=== PATIENT | male | born 1980 | race Caucasian/White ===

== ENCOUNTER → 2024-02-01 | Day surgery (SDC) | payer OTHER ==
[~2024-02-01] MED LIST: ATORVASTATIN CA40 MG PO; BUSPIRONE HCL10 MG PO; FENTANYL CITRATE/PF 100MCG/2 ML INJ ONE; FISH OIL 1,0001 EAC7 PO; FOLIC ACID0.4 MG PO; GLUCAGON FOR INJ 1 MG VIAL ONE; HYDROCHLOROTHIA25 MG PO; LEXAPRO20 MG PO; LIDOCAINE HCL 2% LOCAL INJ 5 ML SDV VIAL INJ ONE; LISINOPRIL10 MG PO; MAGNESIUM250 MG PO; METOCLOPRAMIDE HCL 10 MG/2ML VIAL ONE; MIDAZOLAM HCL 2 MG/2 ML VIAL ONE; PROPOFOL IV EMULSION 10 MG/ML 20 ML VIAL ONE; PROPOFOL IV EMULSION 10 MG/ML 50 ML VIAL IV ONE; SIMETHICONE 40 MG/0.6 ML BTL ONE; TRAZODONE HCL50 MG PO; VITAMIN D31250 MCG PO
[2024-02-01] MEDS: LACTATED RINGER'S 1,000 ML ONE (13:29)
[2024-02-01 14:33] VITALS: TEMP 97.4
[2024-02-01 14:45] VITALS: BP 119/88; PULSE 74; RESP 16; O2SAT 95
== END | disposition home or self-care (01) ==
LOC: OR 12:01
PROVIDERS: ATTEND Internal Medicine Gastroenterology
DX: Z12.11 Encounter for screening for malignant neoplasm of colon (principal); D12.2 Benign neoplasm of ascending colon; K29.70 Gastritis, unspecified, without bleeding; K22.2 Esophageal obstruction; K20.90 Esophagitis, unspecified without bleeding; K31.89 Other diseases of stomach and duodenum; K44.9 Diaphragmatic hernia without obstruction or gangrene; K57.30 Diverticulosis of large intestine without perforation or abscess without bleeding; K64.8 Other hemorrhoids; Z71.3 Dietary counseling and surveillance; I10 Essential (primary) hypertension; E78.5 Hyperlipidemia, unspecified; F32.A Depression, unspecified; F17.290 Nicotine dependence, other tobacco product, uncomplicated; Z71.6 Tobacco abuse counseling; Z79.899 Other long term (current) drug therapy; Z68.28 Body mass index [BMI] 28.0-28.9, adult
CPT/HCPCS: 43239; 43450; 45380; 45385; 93005; J1610; J2001; J2250; J2470; J2704 ×2; J2765; J3010; J7121; 45378